=== PATIENT | female | born 1985 | race African-American/Black ===

== ENCOUNTER 2017-08-01 18:38 | Emergency (ER) | payer OTHER ==
[~2017-08-01] VITALS: Ht 152.4 cm; Wt 70.3 kg
[~2017-08-01 18:38] MED LIST: BACTRIM DS TAB1 EACH PO; CIPROFLOXACIN500 M1 PO; CITRATE OF MAG296 ML PO; KEFLEX500 MG PO; NOHOMEMEDICATIONS; ONDANSETRON HCL4 M2 PO; PHENERGAN 25 MG25 M1 PO; PRENATAL PO; PRILOSEC 20 MG20 MG PO; PYRIDIUM100 M1 PO; PYRIDIUM200 MG PO; TRAMADOL 50 MG50 MG PO; ZOFRAN ODT4 MG PO
== END 2017-08-01 20:04 | disposition home or self-care (01) ==
LOC: ER 18:38
DX: J02.0 Streptococcal pharyngitis (principal)